=== PATIENT | male | born 1930 | race Native Hawaiian/Other Pacific Islander ===

== ENCOUNTER 2016-11-29 08:01 | Outpatient (CLI) | payer OTHER | END 2016-11-29 19:05 | disposition home or self-care (01) | LOC: CT 08:01 | DX: I72.9 Aneurysm of unspecified site (principal) | CPT/HCPCS: 36415; 82565; 84520; Q9963 ==

== ENCOUNTER 2018-10-07 12:58 | Outpatient (CLI) | payer OTHER | END 2018-10-07 22:53 | disposition home or self-care (01) | LOC: RAD 12:58 | DX: M54.6 Pain in thoracic spine (principal); M54.5 Low back pain ==

== ENCOUNTER 2019-02-16 07:55 | Outpatient (CLI) | payer OTHER | END 2019-02-17 05:45 | disposition home or self-care (01) | LOC: MRI 07:55 | DX: S32.040G Wedge compression fracture of fourth lumbar vertebra, subsequent encounter for fracture with delayed healing (principal) ==

== ENCOUNTER 2019-03-27 14:59 | Outpatient (CLI) | payer OTHER ==
[2019-03-27 15:32] LABS: PLATELET COUNT 215 K/uL (142-355)
[2019-03-27 15:54] LABS: POTASSIUM 4.5 mmol/L (3.6-5.2)
== END 2019-03-27 22:19 | disposition home or self-care (01) ==
LOC: LABW 14:59
PROVIDERS: Nurse Practitioner
DX: Z00.00 Encounter for general adult medical examination without abnormal findings (principal); E78.00 Pure hypercholesterolemia, unspecified; R53.82 Chronic fatigue, unspecified; Z12.5 Encounter for screening for malignant neoplasm of prostate; D50.8 Other iron deficiency anemias
CPT/HCPCS: 36415; 80053; 80061; 82607; 82728; 83540; 84153; 84443; 85027

== ENCOUNTER 2019-07-23 09:46 | Outpatient (CLI) | payer OTHER | END 2019-07-23 19:37 | disposition home or self-care (01) | LOC: RESP 09:46 | DX: R06.02 Shortness of breath (principal) ==

== ENCOUNTER 2019-07-27 08:44 | Outpatient (CLI) | payer OTHER | END 2019-07-27 22:31 | disposition home or self-care (01) | LOC: RAD 08:44 | DX: Z13.820 Encounter for screening for osteoporosis (principal); M81.0 Age-related osteoporosis without current pathological fracture ==

== ENCOUNTER 2021-11-03 15:22 | Emergency (ER) | payer OTHER ==
[~2021-11-03] VITALS: Ht 170.2 cm; Wt 59.0 kg
[2021-11-03 16:23] LABS: PLATELET COUNT 155 K/uL (142-355)
[2021-11-03 16:30] LABS: POTASSIUM 4.3 mmol/L (3.6-5.2)
[2021-11-03 16:47] LABS: PARTIAL THROMBOPLASTIN TIME 26.4 SECONDS (24.5-33.6)
[2021-11-03] MEDS ORDERED: ONDA4TAB3 PO (19:00)
[2021-11-03] MEDS ORDERED: LEVO250T2 PO (19:00)
[2021-11-03] MEDS ORDERED: KETO10TA34 PO (19:00)
[2021-11-03 19:25] VITALS: BP 133/72; TEMP 97.7
== END 2021-11-03 19:25 | disposition home or self-care (01) ==
LOC: ED 15:22
PROVIDERS: Hospitalist
DX: N30.10 Interstitial cystitis (chronic) without hematuria (principal); M48.56XA Collapsed vertebra, not elsewhere classified, lumbar region, initial encounter for fracture; Z91.81 History of falling; R10.84 Generalized abdominal pain
CPT/HCPCS: 36415; 80048; 81000; 85027; 85610; 85730; 96360; 96365; 99284; J0696; J1885

== ENCOUNTER 2021-11-27 10:59 | Emergency (ER) | payer OTHER ==
[~2021-11-27] VITALS: Ht 170.2 cm; Wt 59.0 kg
[~2021-11-27 10:59] MED LIST: KETO10TA34 PO; LEVO250T2 PO; ONDA4TAB3 PO
[2021-11-27 11:33] LABS: PLATELET COUNT 134 K/uL (142-355)
[2021-11-27 11:50] LABS: POTASSIUM 4.4 mmol/L (3.6-5.2)
[2021-11-27 16:40] VITALS: BP 100/58; TEMP 98.3
== END 2021-11-27 16:40 | disposition short-term general hospital (02) ==
LOC: ED 10:59
PROVIDERS: Emergency Medicine Emergency Medical Services
DX: I21.4 Non-ST elevation (NSTEMI) myocardial infarction (principal); N39.0 Urinary tract infection, site not specified; N13.6 Pyonephrosis; I10 Essential (primary) hypertension
CPT/HCPCS: 80053; 81000; 82150; 83690; 84484; 85027; 85610; 87040; 87086; 87088; 93005; 96360; 96365; 96375; 96376; 99284; J0696; J1650; J2270; J2405; Q9963